=== PATIENT | male | born 1995 | race Caucasian/White ===

== ENCOUNTER 2017-12-05 15:42 | Emergency (ER) | payer OTHER ==
[2017-12-05 15:46] VITALS: BMI 28.1
[2017-12-05] MEDS ORDERED: ALBUTEROL SO4 2.5/IPRATROPIUM 0.5 INH SOL 3 ML VIAL.NEB. NEB SCH (16:30)
[2017-12-05] MEDS ORDERED: ALBUTEROL SO4 0.083% IH SOL 2.5 MG/3 ML VIAL.NEB. NEB ONE (16:44)
[2017-12-05] MEDS ORDERED: ALBUTEROL SO4 2.5/IPRATROPIUM 0.5 INH SOL 3 ML VIAL.NEB. NEB ONE ×4 (16:44→19:50)
[2017-12-05] MEDS: ALBUTEROL SO4 2.5/IPRATROPIUM 0.5 INH SOL 3 ML VIAL.NEB. NEB SCH ×6 (16:45→20:00)
--- NOTE | 2017-12-05 16:46 | PDOC ---
History of Present Illness - General Chief Complaint: Cold Symptoms Stated Complaint: SOB Time Seen by Provider: 12/05/17 16:00 - History of Present Illness Initial Comments: When he 2-year-old male with difficulty breathing 3 days. He has a history of asthma as a child since his adulthood he has not had any issues with asthma. He did state about a week ago he was doing some work in the garage when he was bothered by the dust at the time. 12/05/17 16:43 Past History - Past Medical History Allergies/Adverse Reactions: Allergies Allergy/AdvReac Type Severity Reaction Status Date / Time peanut Allergy Verified 12/05/17 16:23 PEANUTS Allergy Uncoded 12/05/17 15:43 Home Medications: Ambulatory Orders Albuterol Sulfate 0.5% [Ventolin 0.5% Nebulizing Soln. -] 1 neb IH Q4HWA PRN #1 vial 12/05/17 Methylprednisolone [Medrol Dose Gutierrez] 4 mg PO ASDIR #21 tablet 12/05/17 Asthma: Yes COPD: No - Surgical History Abdominal Surgery: Yes (HERNIA REPAIR A CHILD) - Suicide/Smoking/Psychosocial Hx Smoking Status: No Smoking History: Never smoked Have you smoked in the past 12 months: No Number of Cigarettes Smoked Daily: 0 Information on smoking cessation initiated: No Hx Alcohol Use: No Drug/Substance Use Hx: No Substance Use Type: None Review of Systems - Review of Systems Comments:: GENERAL/CONSTITUTIONAL: [No fever or chills. No weakness. No weight change.] HEAD, EYES, EARS, NOSE AND THROAT: [No change in vision. No ear pain or discharge. No sore throat.] CARDIOVASCULAR: [No chest pain or shortness of breath.] RESPIRATORY: [+ cough, wheezing, no hemoptysis.] GASTROINTESTINAL: [No nausea, vomiting, diarrhea or constipation. No rectal bleeding.] GENITOURINARY: [No dysuria, frequency, or change in urination.] MUSCULOSKELETAL: [No joint or muscle swelling or pain. No neck or back pain.] SKIN AND BREASTS: [No rash or easy bruising.] NEUROLOGIC: [No headache, vertigo, loss of consciousness, or loss of sensation.] PSYCHIATRIC: [No depression or anxiety.] ENDOCRINE: [No increased thirst. No abnormal weight change.] HEMATOLOGIC/LYMPHATIC: [No anemia, easy bleeding, or history of blood clots.] ALLERGIC/IMMUNOLOGIC: [No hives or skin allergy. No latex allergy.] 12/05/17 16:45 *Physical Exam - Vital Signs Last Vital Signs Temp Pulse Resp BP Pulse Ox 98.6 F 80 18 143/86 100 12/05/17 15:43 12/05/17 15:43 12/05/17 15:43 12/05/17 15:43 12/05/17 15:43 - Physical Exam Comments: GENERAL: [The patient is awake, alert, and fully oriented, in no acute distress. ] HEAD: [Normal with no signs of trauma.] EYES: [Pupils equal, round and reactive to light, extraocular movements intact, sclera anicteric, conjunctiva clear.] ENT: [Ears normal, nares patent, oropharynx clear without exudates. Moist mucous membranes.] NECK: [Normal range of motion, supple without lymphadenopathy, JVD, or masses.] LUNGS: [Breath sounds equal, diffuse wheezing bilaterally. .] HEART: [Regular rate and rhythm, normal S1 and S2 without murmur, rub or gallop. ] ABDOMEN: [Soft, nontender, normoactive bowel sounds. No guarding, no rebound. No masses.] EXTREMITIES: [Normal range of motion, no edema. No clubbing or cyanosis. No cords, erythema, or tenderness.] NEUROLOGICAL: [Cranial nerves II through XII grossly intact. Normal speech, normal gait.] PSYCH: [Normal mood, normal affect.] SKIN: [Warm, Dry, normal turgor, no rashes or lesions noted.] 12/05/17 16:45 Medical Decision Making - Medical Decision Making He's feeling better after the first DuoNeb. Lung sounds are clearing up nicely. I waited 15 minutes and give him another treatment. 12/05/17 16:42 12/05/17 17:56 After the fourth nebulizer treatment of DuoNeb he has clear lung sounds except for the left base which demonstrates some minimal expiratory wheeze. I will hold onto him for about another half hour or so and reexamine him. He did get steroids 12/05/17 18:32 After the fourth nebulizer treatment he waited an hour I reexamined him he continues to wheeze aborted magnesium. 2 g over 40 minutes. I also ordered a chest x-ray which is clear *DC/Admit/Observation/Transfer - Prescriptions Prescriptions: Albuterol Sulfate 0.5% [Ventolin 0.5% Nebulizing Soln. -] 1 neb IH Q4HWA PRN #1 vial PRN Reason: Wheezing Methylprednisolone [Medrol Dose Gutierrez] 4 mg PO ASDIR #21 tablet - Referrals Referrals: Zulma Flower [Primary Care Provider] - - Patient Instructions - Post Discharge Activity
[2017-12-05] MEDS ORDERED: predniSONE 20 MG TABLET (UD) PO ONE (17:13)
[2017-12-05] MEDS ORDERED: predniSONE 20 MG TABLET (UD) ONE (17:21)
[2017-12-05] MEDS ORDERED: ACETAMINOPHEN 500 MG TABLET (FP) ONE (18:01)
[2017-12-05] MEDS ORDERED: ACETAMINOPHEN 500 MG TABLET (FP) PO ONE (18:01)
[2017-12-05] MEDS ORDERED: MAGNESIUM SULF 50% (8.12 MEQ/2 ML-1 GM VIAL) IVPB ONE (18:23)
[2017-12-05] MEDS ORDERED: MAGNESIUM SULF 50% (8.12 MEQ/2 ML-1 GM VIAL) ONE (18:42)
--- NOTE | 2017-12-05 19:29 | PDOC ---
*Physical Exam - Vital Signs Last Vital Signs Temp Pulse Resp BP Pulse Ox 98.6 F 80 18 143/86 100 12/05/17 15:43 12/05/17 15:43 12/05/17 15:43 12/05/17 15:43 12/05/17 15:43 ED Treatment Course - LABORATORY CBC & Chemistry Diagram: 12/05/17 21:30 12/05/17 21:30 - Medications Given in the ED: ED Medications Discontinued Medications Generic Name Dose Route Start Last Admin Trade Name Obinna PRN Reason Stop Dose Admin Acetaminophen 1,000 mg 12/05/17 18:01 12/05/17 18:04 Tylenol - PO 12/05/17 18:02 1,000 mg ONCE ONE Administration Albuterol/Ipratropium 1 amp 12/05/17 16:30 12/05/17 16:32 Duoneb - NEB 12/05/17 17:16 1 amp Q15M SARA Administration Albuterol/Ipratropium 1 amp 12/05/17 16:45 12/05/17 17:49 Duoneb - NEB 12/05/17 17:31 1 amp Q15M SARA Administration Albuterol/Ipratropium 1 amp 12/05/17 17:45 12/05/17 17:50 Duoneb - NEB 12/05/17 18:31 Not Given Q15M SARA Albuterol/Ipratropium 1 amp 12/05/17 17:45 12/05/17 17:50 Duoneb - NEB 12/05/17 18:31 Not Given Q15M SARA Magnesium Sulfate 2 gm 12/05/17 18:23 12/05/17 18:50 Magnesium Sulfate IVPB 12/05/17 18:24 2 gm ONCE ONE Administration Prednisone 60 mg 12/05/17 17:13 12/05/17 17:23 Deltasone - PO 12/05/17 17:14 60 mg ONCE ONE Administration Medical Decision Making - Medical Decision Making 12/05/17 19:28 Mr. Lozano is a 22 yo M who was initially seen in [facility] He has a h/o childhood asthma Presents to the ER today due to shortness of breath Pt noted to have significant wheezing He was started on Prednisone, Magnesium, Duonebs x 4 CXR was performed and did not show significant consolidation Pt continued to wheeze Sent to the main ER Plan for admission 12/05/17 19:29 Pt seen by Midlevel Provider under my direct supervision Pt interviewed and examined Ancillary studies reviewed I agree with plan as outlined by Midlevel Provider *DC/Admit/Observation/Transfer Diagnosis at time of Disposition: Asthma - Discharge Dispostion Disposition: HOME Condition at time of disposition: Stable - Prescriptions Prescriptions: Albuterol Sulfate 0.5% [Ventolin 0.5% Nebulizing Soln. -] 1 neb IH Q4HWA PRN #1 vial PRN Reason: Wheezing Methylprednisolone [Medrol Dose Gutierrez] 4 mg PO ASDIR #21 tablet predniSONE [Deltasone -] 40 mg PO DAILY #5 tablet - Referrals Referrals: Zulma Flower [Primary Care Provider] - - Patient Instructions Printed Discharge Instructions: DI for Asthma -- Adult Additional Instructions: You have diagnosed with asthma this evening [facility] is for you to bring him home You blew 420 upon discharge It is very important for you to follow up with your physician within [address] Fontaine is a feed crusher. The phone number is [phone] Make an appointment with the feed crusher for this week Review symptoms worsen, persists or becomes severe, you need to return back to the emergency department [facility]. - Post Discharge Activity
[2017-12-05] MEDS ORDERED: methylPREDNISolone NA SUCC 125 MG/2 ML VIAL IVPB ONE (19:43)
--- NOTE | 2017-12-05 19:48 | PDOC ---
*Physical Exam - Vital Signs Last Vital Signs Temp Pulse Resp BP Pulse Ox 98.6 F 80 18 143/86 100 12/05/17 15:43 12/05/17 15:43 12/05/17 15:43 12/05/17 15:43 12/05/17 19:31 <Pelon Benitez - Last Filed: 12/05/17 22:41> - Vital Signs Last Vital Signs Temp Pulse Resp BP Pulse Ox 98.4 F 98 H 18 148/86 98 12/05/17 20:04 12/05/17 20:04 12/05/17 20:04 12/05/17 20:04 12/05/17 20:04 <Taylor Lowery - Last Filed: 12/06/17 01:27> ED Treatment Course - LABORATORY CBC & Chemistry Diagram: 12/05/17 21:30 12/05/17 21:30 - Medications Given in the ED: ED Medications Discontinued Medications Generic Name Dose Route Start Last Admin Trade Name Freq PRN Reason Stop Dose Admin Acetaminophen 1,000 mg 12/05/17 18:01 12/05/17 18:04 Tylenol - PO 12/05/17 18:02 1,000 mg ONCE ONE Administration Albuterol/Ipratropium 1 amp 12/05/17 16:30 12/05/17 16:32 Duoneb - NEB 12/05/17 17:16 1 amp Q15M SARA Administration Albuterol/Ipratropium 1 amp 12/05/17 16:45 12/05/17 17:49 Duoneb - NEB 12/05/17 17:31 1 amp Q15M SARA Administration Albuterol/Ipratropium 1 amp 12/05/17 17:45 12/05/17 17:50 Duoneb - NEB 12/05/17 18:31 Not Given Q15M SARA Albuterol/Ipratropium 1 amp 12/05/17 17:45 12/05/17 17:50 Duoneb - NEB 12/05/17 18:31 Not Given Q15M SARA Magnesium Sulfate 2 gm 12/05/17 18:23 12/05/17 18:50 Magnesium Sulfate IVPB 12/05/17 18:24 2 gm ONCE ONE Administration Prednisone 60 mg 12/05/17 17:13 12/05/17 17:23 Deltasone - PO 12/05/17 17:14 60 mg ONCE ONE Administration <Pelon Benitez - Last Filed: 12/05/17 22:41> - LABORATORY CBC & Chemistry Diagram: 12/05/17 21:30 12/05/17 21:30 - ADDITIONAL ORDERS Additional order review: Laboratory Results 12/05/17 21:30 Sodium 139 Potassium 3.7 Chloride 103 Carbon Dioxide 27 Anion Gap 9 BUN 12 Creatinine 1.0 Creat Clearance w eGFR > 60 Random Glucose 146 H Calcium 8.6 Total Bilirubin 0.4 AST 16 ALT 29 Alkaline Phosphatase 70 Total Protein 7.8 Albumin 4.3 12/05/17 21:30 RBC 5.03 MCV 83.3 MCHC 33.9 RDW 13.5 MPV 8.8 Neutrophils % 92.8 H Lymphocytes % 5.3 L Monocytes % 1.3 L Eosinophils % 0.3 Basophils % 0.3 - Medications Given in the ED: ED Medications Discontinued Medications Generic Name Dose Route Start Last Admin Trade Name Freq PRN Reason Stop Dose Admin Acetaminophen 1,000 mg 12/05/17 18:01 12/05/17 18:04 Tylenol - PO 12/05/17 18:02 1,000 mg ONCE ONE Administration Albuterol/Ipratropium 1 amp 12/05/17 16:30 12/05/17 16:32 Duoneb - NEB 12/05/17 17:16 1 amp Q15M SARA Administration Albuterol/Ipratropium 1 amp 12/05/17 16:45 12/05/17 20:00 Duoneb - NEB 12/05/17 17:31 Not Given Q15M SARA Albuterol/Ipratropium 1 amp 12/05/17 17:45 12/05/17 17:50 Duoneb - NEB 12/05/17 18:31 Not Given Q15M SARA Albuterol/Ipratropium 1 amp 12/05/17 17:45 12/05/17 17:50 Duoneb - NEB 12/05/17 18:31 Not Given Q15M SARA Albuterol/Ipratropium 1 amp 12/05/17 19:47 12/05/17 20:04 Duoneb - NEB 12/05/17 19:48 1 amp ONCE ONE Administration Magnesium Sulfate 2 gm 12/05/17 18:23 12/05/17 18:50 Magnesium Sulfate IVPB 12/05/17 18:24 2 gm ONCE ONE Administration Methylprednisolone Sodium Succinate 40 mg 12/05/17 19:43 12/05/17 20:04 Solu-Medrol - IVPB 12/05/17 19:44 40 mg ONCE ONE Administration Prednisone 60 mg 12/05/17 17:13 12/05/17 17:23 Deltasone - PO 12/05/17 17:14 60 mg ONCE ONE Administration <Taylor Lowery - Last Filed: 12/06/17 01:27> Progress Note - Progress Note Progress Note: 1942hrs: Pt seen by Hospitalist/Dr. Nunez. Ed obs. will re-evaluate @~2230hrs 2241hrs: [facility] 420/ L/S CTAB Pt states he feels fine and wishes to be d/c <Pelon Benitez - Last Filed: 12/05/17 22:41> Medical Decision Making - Medical Decision Making 12/06/17 01:24 22 yo m presenting to the ER with a complaint of shortness of breath and wheezing Pt given multiple nebs and steroids and Magnesium in [facility] Pt continues to wheeze plan was for observation Pt was seen by Admitting hospitalist who did not accept pt for observation but suggested ED Obs Pt monitored in the ER for 8 hrs and re assessed Improved [facility] Discharged to home Pt seen by Midlevel Provider under my direct supervision Pt interviewed and examined Ancillary studies reviewed I agree with plan as outlined by Midlevel Provider Clinical Impression: severe asthma exacerbation, initial presentation <Taylor Lowery - Last Filed: 12/06/17 01:27> *DC/Admit/Observation/Transfer - Discharge Dispostion Decision to Admit order: No <Pelon Benitez - Last Filed: 12/05/17 22:41> <Taylor Lowery - Last Filed: 12/06/17 01:27> Diagnosis at time of Disposition: Asthma Qualifiers: Asthma severity: moderate Asthma persistence: unspecified Asthma complication type: unspecified Qualified Code(s): J45.909 - Unspecified asthma, uncomplicated - Discharge Dispostion Disposition: HOME Condition at time of disposition: Stable - Prescriptions Prescriptions: Albuterol Sulfate 0.5% [Ventolin 0.5% Nebulizing Soln. -] 1 neb IH Q4HWA PRN #1 vial PRN Reason: Wheezing Methylprednisolone [Medrol Dose Gutierrez] 4 mg PO ASDIR #21 tablet predniSONE [Deltasone -] 40 mg PO DAILY #5 tablet - Referrals Referrals: Zulma Flower [Primary Care Provider] - - Patient Instructions Printed Discharge Instructions: DI for Asthma -- Adult Additional Instructions: You have diagnosed with asthma this evening The [facility] is for you to bring him home You blew 420 upon discharge It is very important for you to follow up with your physician within [address] Fontaine is a cloud software engineer. The phone number is [phone] Make an appointment with the cloud software engineer for this week Review symptoms worsen, persists or becomes severe, you need to return back to the emergency department [facility]. - Post Discharge Activity
[2017-12-05] MEDS ORDERED: methylPREDNISolone NA SUCC 40 MG/1 ML VIAL ONE (19:51)
[2017-12-05 20:05] VITALS: BP 148/86; PULSE 98; TEMP 98.4
[2017-12-05 21:39] LABS: HEMATOCRIT 41.9 % (35.4-49); HEMOGLOBIN 14.2 GM/dL (11.7-16.9); MCH 28.3 pg (25.7-33.7); MCHC 33.9 g/dl (32.0-35.9); MEAN CELL VOLUME 83.3 fl (80-96); MEAN PLT VOLUME 8.8 fl (7.5-11.1); PLATELET COUNT 247 K/MM3 (134-434); RBC 5.03 M/mm3 (4.00-5.60); RDW 13.5 % (11.9-15.9); WHITE BLOOD COUNT 9.4 K/mm3 (4.0-10.0)
[2017-12-05 22:04] LABS: NEUT % 92.8 % (42.8-82.8)
[2017-12-05 22:05] LABS: BASO % 0.3 % (0-2.0); EOS % 0.3 % (0-4.5); LYMPH % 5.3 % (8-40); MONO % 1.3 % (3.8-10.2)
[2017-12-05 22:13] LABS: ALBUMIN 4.3 g/dl (3.4-5.0); ALK PHOS 70 U/L (45-117); ANION GAP 9 (8-16); BILIRUBIN,TOTAL 0.4 mg/dL (0.2-1.0); BLOOD UREA NITROGEN 12 mg/dL (7-18); CALCIUM 8.6 mg/dL (8.5-10.1); CHLORIDE 103 mmol/L (98-107); CO2 27 mmol/L (21-32); GLUCOSE,RANDOM 146 mg/dL (74-106); POTASSIUM 3.7 mmol/L (3.5-5.1); SGOT/AST 16 U/L (15-37); SGPT/ALT 29 U/L (12-78); SODIUM 139 mmol/L (136-145); TOT PROT 7.8 g/dl (6.4-8.2)
== END 2017-12-05 23:19 | disposition home or self-care (01) ==
LOC: JERFT 15:42 → JER 15:42
PROC: 3E0F7GC Introduction of Other Therapeutic Substance into Respiratory Tract, Via Natural or Artificial Opening (ICD-10-PCS; principal; 2017-12-05)
PROC: 3E0333Z Introduction of Anti-inflammatory into Peripheral Vein, Percutaneous Approach (ICD-10-PCS; 2017-12-05)
PROC: 3E033GC Introduction of Other Therapeutic Substance into Peripheral Vein, Percutaneous Approach (ICD-10-PCS; 2017-12-05)
PROC: 3E0F7GC Introduction of Other Therapeutic Substance into Respiratory Tract, Via Natural or Artificial Opening (ICD-10-PCS; 2017-12-05)
PROC: 3E0F7GC Introduction of Other Therapeutic Substance into Respiratory Tract, Via Natural or Artificial Opening (ICD-10-PCS; 2017-12-05)
PROC: 3E0F7GC Introduction of Other Therapeutic Substance into Respiratory Tract, Via Natural or Artificial Opening (ICD-10-PCS; 2017-12-05)
PROC: 3E0F7GC Introduction of Other Therapeutic Substance into Respiratory Tract, Via Natural or Artificial Opening (ICD-10-PCS; 2017-12-05)
DX: J45.901 Unspecified asthma with (acute) exacerbation (principal)
CPT/HCPCS: 36415; 71045-TC-FY; 80053; 85025; 99283-25; J7620

== ENCOUNTER 2018-11-15 20:21 | Emergency (ER) | payer OTHER ==
[2018-11-15 20:29] VITALS: BP 145/90; PULSE 85; TEMP 97.2; BMI 27.3
[2018-11-15] MEDS ORDERED: methylPREDNISolone NA SUCC 125 MG/2 ML VIAL IVPB ONE (20:55)
[2018-11-15] MEDS ORDERED: methylPREDNISolone NA SUCC 125 MG/2 ML VIAL IVPUSH ONE (20:55)
[2018-11-15] MEDS ORDERED: methylPREDNISolone NA SUCC 125 MG/2 ML VIAL ONE (20:59)
--- NOTE | 2018-11-16 05:35 | PDOC ---
Documentation entered by Rhoda Benton SCRIBE, acting as scribe for Minna Aldana MD. Minna Aldana MD: This documentation has been prepared by the Chetan adame Xhesika, SCRIBE, under my direction and personally reviewed by me in its entirety. I confirm that the documentation accurately reflects all work, treatment, procedures, and medical decision making performed by me. History of Present Illness - General Chief Complaint: Allergic Reaction Stated Complaint: TONSILS SWOLLEN Time Seen by Provider: 11/15/18 20:42 History Source: Patient Exam Limitations: No Limitations - History of Present Illness Initial Comments: 11/15/18 21:06 The patient is a 23 year old male, with a significant past medical history of allergic reactions who presents to the emergency department with an allergic reaction. The patient states he was eating an Enchilada at a restaurant at 7: 30pm, went home and felt his tonsils swell. The patient states he called the restaurant and they confirmed that the sauce in the enchiladas had almonds in it. The patient notes his last allergic reaction was to dust last summer when he was helping his dad clean. The patient states he has an epipen but never uses it and it probably . The patient denies any difficulty breathing, abdominal pain or any rashes. The patient denies taking any medication to relieve his symptoms. The patient denies chest pain, shortness of breath, headache or dizziness. The patient denies fever, chills, nausea, vomit, diarrhea or constipation. The patient denies dysuria, frequency, urgency or hematuria. Allergies: NKDA. Peanuts Past surgical history: None reported Social history: None reported PCP: Zulma Santo Past History - Past Medical History Allergies/Adverse Reactions: Allergies Allergy/AdvReac Type Severity Reaction Status Date / Time peanut Allergy Verified 12/05/17 16:23 PEANUTS Allergy Uncoded 12/05/17 15:43 Home Medications: Ambulatory Orders Epinephrine [Epipen] 0.3 mg IJ ONCE #1 auto.injct 11/15/18 Prednisone [Deltasone] 20 mg PO DAILY #3 tablet 11/15/18 Asthma: Yes COPD: No - Surgical History Abdominal Surgery: Yes (HERNIA REPAIR A CHILD) - Suicide/Smoking/Psychosocial Hx Smoking Status: No Smoking History: Never smoked Have you smoked in the past 12 months: No Number of Cigarettes Smoked Daily: 0 Hx Alcohol Use: No Drug/Substance Use Hx: No Substance Use Type: None Review of Systems - Review of Systems Able to Perform ROS?: Yes Comments:: 11/15/18 21:08 GENERAL/CONSTITUTIONAL: No fever or chills. No weakness. HEAD, EYES, EARS, NOSE AND THROAT: (+) swollen tonsils. No change in vision. No ear pain or discharge. No sore throat. CARDIOVASCULAR: No chest pain or shortness of breath. RESPIRATORY: No cough, wheezing, or hemoptysis. GASTROINTESTINAL: No nausea, vomiting, diarrhea or constipation. GENITOURINARY: No dysuria, frequency, or change in urination. MUSCULOSKELETAL: No joint or muscle swelling or pain. No neck or back pain. SKIN: No rash NEUROLOGIC: No headache, vertigo, loss of consciousness, or change in strength/ sensation. ENDOCRINE: No increased thirst. No abnormal weight change. HEMATOLOGIC/LYMPHATIC: No anemia, easy bleeding, or history of blood clots. ALLERGIC/IMMUNOLOGIC: No hives or skin allergy. *Physical Exam - Vital Signs Last Vital Signs Temp Pulse Resp BP Pulse Ox 97.2 F L 85 16 145/90 100 11/15/18 20:22 11/15/18 20:22 11/15/18 20:22 11/15/18 20:22 11/15/18 20:22 - Physical Exam Comments: 11/15/18 21:08 GENERAL: Awake, alert, and fully oriented, in no acute distress HEAD: No signs of trauma EYES: PERRLA, EOMI, sclera anicteric, conjunctiva clear ENT: (+) moderate edema bilateral tonsils. (+) moderate edema of uvula. No lip or tongue edema noted. Auricles normal inspection, hearing grossly normal, nares patent, oropharynx clear without exudates. Moist mucosa NECK: Normal ROM, supple, no lymphadenopathy, JVD, or masses. No strider LUNGS: Breath sounds equal, clear to auscultation bilaterally. No wheezes, and no crackles HEART: Regular rate and rhythm, normal S1 and S2, no murmurs, rubs or gallops ABDOMEN: Soft, nontender, normoactive bowel sounds. No guarding, no rebound. No masses EXTREMITIES: Normal range of motion, no edema. No clubbing or cyanosis. No cords, erythema, or tenderness NEUROLOGICAL: Cranial nerves II through XII grossly intact. Normal speech, normal gait SKIN: Warm, Dry, normal turgor, no rashes or lesions noted. ED Treatment Course - Medications Given in the ED: ED Medications Discontinued Medications Generic Name Dose Route Start Last Admin Trade Name Obinna PRN Reason Stop Dose Admin Diphenhydramine HCl 50 mg 11/15/18 20:54 11/15/18 21:12 Benadryl Injection - IVPB 11/15/18 20:55 50 mg ONCE ONE Administration Methylprednisolone Sodium Succinate 125 mg 11/15/18 20:55 11/15/18 21:13 Solu-Medrol - IVPB 11/15/18 20:56 Not Given ONCE ONE Methylprednisolone Sodium Succinate 125 mg 11/15/18 20:55 11/15/18 21:10 Solu-Medrol - IVPUSH 11/15/18 20:56 125 mg ONCE ONE Administration Medical Decision Making - Medical Decision Making This 23-year-old man with a history of ALLERGY to tree nuts presents with sensation of "swollen tonsils" that began soon after eating restaurant food containing almonds this evening. No medication taken at home; patient does not have an up-to-date EpiPen. No difficulty breathing and patient denies sensation of foreign body in his throat. No rash reported. Exam as noted. Benadryl 50 mg IV/Solu-Medrol 125 mg IV administered because of upper airway edema secondary to ALLERGIC reaction. Patient observed for approximately 90 minutes; patient felt significantly better and reexamination showed decreased edema in bilateral tonsils. No stridor or wheezing heard on exam. Patient discharged with instructions to continue antihistamine (Benadryl at night/Zyrtec or Claritin during the day) as well as prednisone 20 mg daily for the next 3 days. Follow-up with his general medical doctor should occur within the next 48 hours Prescription for prednisone and EpiPen sent to his pharmacy He should return to the emergency room if he has recurrent sensation of throat swelling or difficulty swallowing/breathing. *DC/Admit/Observation/Transfer Diagnosis at time of Disposition: Allergic reaction Qualifiers: Encounter type: initial encounter Qualified Code(s): T78.40XA - Allergy, unspecified, initial encounter - Discharge Dispostion Disposition: HOME Condition at time of disposition: Improved - Prescriptions Prescriptions: Epinephrine [Epipen] 0.3 mg IJ ONCE #1 auto.injct Prednisone [Deltasone] 20 mg PO DAILY #3 tablet - Referrals Referrals: Zulma Flower [Primary Care Provider] - - Patient Instructions Printed Discharge Instructions: DI for General Allergic Reactions Additional Instructions: Prednisone 20 mg daily for the next 3 days (next dose tomorrow; take with food) Antihistamine (Benadryl, Zyrtec, Claritin) as directed tomorrow Use EpiPen if you have severe symptoms of difficulty swallowing/breathing and return to ER Follow-up with your primary care physician within the next 48 hours - Post Discharge Activity
== END 2018-11-15 22:23 | disposition home or self-care (01) ==
LOC: FER 20:21
PROC: 3E033GC Introduction of Other Therapeutic Substance into Peripheral Vein, Percutaneous Approach (ICD-10-PCS; principal; 2018-11-15)
DX: T78.40XA Allergy, unspecified, initial encounter (principal); J45.909 Unspecified asthma, uncomplicated
CPT/HCPCS: 99281-25